=== PATIENT | male | born 1960 | race African-American/Black ===

== ENCOUNTER 2023-11-09 12:18 | Emergency (ER) | payer MEDICAID ==
[~2023-11-09] VITALS: Ht 162.6 cm; Wt 84.4 kg
[2023-11-09 12:28] VITALS: O2SAT 98
[2023-11-09 13:24] LABS: BASOPHILS % 0.5 % (0.0-2.0); EOSINOPHILS % 0.2 % (0.0-5.0); HEMOGLOBIN. 16.4 g/dL (14.0-18.0); LYMPHOCYTES % 7.8 % (20.0-50.0); MEAN CORPUSCULAR HEMOGLOBIN 27.9 pg (28.0-32.0); MEAN CORPUSCULAR HGB CONC 32.8 g/dL (31.0-37.0); MEAN PLATELET VOLUME 8.3 fl (7.4-10.4); MONOCYTES % 5.8 % (2.0-8.0); NEUTROPHILS % 85.7 % (40.0-76.0); PLATELET 304 x1000/uL (130-400); RED BLOOD CELL COUNT 5.88 mill/uL (4.7-6.1); RED CELL DISTRIBUTION WIDTH 15.7 % (11.6-14.6)
[2023-11-09 13:30] LABS: CHLORIDE 109 mEq/L (98-107); POTASSIUM 3.7 mEq/L (3.5-5.1); SODIUM 140 mEq/L (136-145)
[2023-11-09 13:31] LABS: CARBON DIOXIDE 17 mEq/L (21-32)
[2023-11-09 13:32] LABS: CALCIUM 10.4 mg/dL (8.7-10.4)
[2023-11-09 13:36] LABS: CREATININE 1.3 mg/dL (0.6-1.3); GLUCOSE 125 mg/dL (70-105); UREA NITROGEN BLOOD 21 mg/dL (9-23)
[2023-11-09 13:38] LABS: ALANINE AMINOTRANSFERASE 14 IU/L (10-49); ALBUMIN 5.1 g/dL (3.2-4.8); ASPARTATE AMINOTRANSFERASE 15 IU/L (<34)
[2023-11-09 13:39] LABS: PROTEIN TOTAL 8.2 g/dL (6.0-8.3)
[2023-11-09] MEDS ORDERED: MECLIZINE 25MG TABLET PO ONE (16:30)
[2023-11-09] MEDS ORDERED: MECL-299 MT (16:41)
[2023-11-09 16:59] VITALS: BP 121/78; PULSE 105; RESP 18; TEMP 36.83628; O2SAT 98
[2023-11-09] MEDS: MECLIZINE 12.5MG TABLET PO NR (17:13)
== END 2023-11-09 17:16 | disposition home or self-care (01) ==
LOC: ER 12:18
DX: R42 Dizziness and giddiness (principal); E11.9 Type 2 diabetes mellitus without complications; E78.00 Pure hypercholesterolemia, unspecified; I10 Essential (primary) hypertension; Z98.890 Other specified postprocedural states
CPT/HCPCS: 36415; 80053; 85025; 99284; J8597